=== PATIENT | female | born 1990 | race Caucasian/White ===

== ENCOUNTER 2017-10-28 18:51 | Emergency (ER) | END 2017-10-29 02:22 | disposition home or self-care (01) ==

== ENCOUNTER 2018-06-20 19:54 | Emergency (ER) | END 2018-06-20 21:34 | disposition home or self-care (01) ==

== ENCOUNTER 2019-01-14 22:31 | Emergency (ER) | payer BC, MEDICAID, OTHER ==
[~2019-01-14] VITALS: Ht 157.5 cm; Wt 80.4 kg
[~2019-01-14 22:31] MED LIST: ACET500C5 PO; CEFU500T45 PO; CEPH-443 PO; HYDR-3498 PO; HYDR-4011 PO; IBUP-1542 PO; NITR-58 PO; NORG1TAB59 PO
[2019-01-14 22:41] VITALS: Ht 157.5 cm; Wt 80.4 kg
--- NOTE | 2019-01-15 00:18 | ERD ---
ER Documentation Chief Complaint Chief Complaint Pelvic pain and light bleeding at 2200, pt sts 9 wks preg HPI 28-year-old female, with a EGA 9 weeks by LMP , presents the emergency department, complaining of 1 day with vaginal spotting, associated with cramping pelvic pain, constant, 6/10. The patient denies fevers, no chills, no intra-abdominal pain. The patient has established care in [place]. ROS All systems reviewed and are negative except as per history of present illness. Medications Home Meds Active Scripts Nitrofurantoin Monohyd Macrocr* (Macrobid*) 100 Mg Capsr, 100 MG PO BID for 5 Days, CAP Prov:GUANACO PACHECO PA-C 06/20/18 Cephalexin* (Keflex*) 500 Mg Capsule, 500 MG PO QID for 5 Days, CAP Prov:CONCEPCION SCHUSTER STRONG NITRIC OPERATOR 10/29/17 Hydrocodone/Acetaminophen (Pella 5-325 Tablet) 1 Each Tablet, 1 TAB PO Q6H PRN for SEVERE PAIN LEVEL 7-10, #20 TAB Prov:CONCEPCION SCHUSTER STRONG NITRIC OPERATOR 10/29/17 Ibuprofen* (Motrin*) 600 Mg Tab, 600 MG PO Q6H PRN for PAIN AND OR ELEVATED TEMP, #30 TAB Prov:CONCEPCION SCHUSTER STRONG NITRIC OPERATOR 10/29/17 Acetaminophen* (Tylophen*) 500 Mg Capsule, 1 CAP PO Q6H PRN for PAIN AND OR ELEVATED TEMP, #20 CAP Prov:MADDIE PEREZ PA-C 03/18/16 Cefuroxime Axetil* (Cefuroxime Axetil*) 500 Mg Tablet, 500 MG PO BID for 7 Days, TAB Prov:MADDIE PEREZ PA-C 03/18/16 Reported Medications Hydrocodone Bit-Acetaminophen* (Pella*) Unknown Strength Tab, PO Q4H PRN for PAIN, TAB 09/13/14 Norgestimate-Ethinyl Estradiol (Trinessa) 0.035-0.18MG Tablet, 1 TAB PO DAILY, TAB 09/13/14 Allergies Allergies: Coded Allergies: No Known Drug Allergy (Verified Allergy, Mild, 09/14/14) PMhx/Soc Medical and Surgical Hx: pt denies Surgical Hx History of Surgery: No Anesthesia Reaction: No Hx Neurological Disorder: No Hx Respiratory Disorders: No Hx Cardiac Disorders: No Hx Psychiatric Problems: No Hx Miscellaneous Medical Probl: Yes (hx of uti, gallstones) Hx Alcohol Use: No Hx Substance Use: No Hx Tobacco Use: No Smoking Status: Never smoker FmHx Family History: No diabetes, No coronary disease Physical Exam Vitals Vital Signs Date Temp Pulse Resp B/P (MAP) Pulse Ox O2 O2 Flow FiO2 Time Delivery Rate 01/15/19 98.2 75 18 116/69 98 Room Air 02:44 (85) 01/14/19 98.9 76 16 112/71 100 22:41 (85) Physical Exam Const: No acute distress Head: Atraumatic Eyes: Normal Conjunctiva ENT: Normal External Ears, Nose and Mouth. Neck: Full range of motion. No meningismus. Resp: Clear to auscultation bilaterally Cardio: Regular rate and rhythm, no murmurs Abd: Soft, non tender, non distended. Normal bowel sounds Skin: No petechiae or rashes Back: No midline or flank tenderness Ext: No cyanosis, or edema Neur: Awake and alert Psych: Normal Mood and Affect Result Diagram: 01/15/19 0052 Results 24 hrs Laboratory Tests Test 01/15/19 00:52 White Blood Count 8.2 10^3/ul Red Blood Count 4.49 10^6/ul Hemoglobin 12.2 g/dl Hematocrit 37.3 % Mean Corpuscular Volume 83.1 fl Mean Corpuscular Hemoglobin 27.2 pg Mean Corpuscular Hemoglobin Concent 32.7 g/dl Red Cell Distribution Width 15.1 % Platelet Count 286 10^3/UL Mean Platelet Volume 10.1 fl Immature Granulocytes % 0.400 % Neutrophils % 51.7 % Lymphocytes % 37.0 % Monocytes % 8.3 % Eosinophils % 2.2 % Basophils % 0.4 % Nucleated Red Blood Cells % 0.0 /100WBC Immature Granulocytes # 0.030 10^3/ul Neutrophils # 4.2 10^3/ul Lymphocytes # 3.0 10^3/ul Monocytes # 0.7 10^3/ul Eosinophils # 0.2 10^3/ul Basophils # 0.0 10^3/ul Nucleated Red Blood Cells # 0.0 10^3/ul Urine Color YELLOW Urine Clarity SLIGHTLY CLOUDY Urine pH 6.0 Urine Specific [place] 1.018 Urine Ketones NEGATIVE mg/dL Urine Nitrite NEGATIVE mg/dL Urine Bilirubin NEGATIVE mg/dL Urine Urobilinogen NEGATIVE mg/dL Urine Leukocyte Esterase NEGATIVE Rocio/ul Urine Microscopic RBC 4 /HPF Urine Microscopic WBC 2 /HPF Urine Mucus FEW /HPF Urine Hemoglobin 3+ mg/dL Urine Glucose NEGATIVE mg/dL Urine Total Protein NEGATIVE mg/dl Beta HCG, Quantitative 56504.0 mIU/ml Patient: LAUREL CARTWRIGHT : 1990 Age: 28 Sex: F MR #: [id number] DOS: 01/15/19 0015 Ordering MD: CHAPARRO SOLOMON MD Location: [facility] Room/Bed: PROCEDURE: US OB < 14 weeks. CLINICAL INDICATION: Vaginal bleeding TECHNIQUE: Multiple sonographic images of the pelvis were obtained utilizing transabdominal technique. The images were reviewed on a PACS workstation. COMPARISON: None FINDINGS: There is a live intrauterine with crown-rump length 3.6 cm and heart rate 174 beats per minute. Gestational sac with mean diameter 3.7 cm. A hypoechoic collection adjacent to the gestational sac measures 2.0 x 0.7 cm, consistent with a small subchorionic hemorrhage. The right ovary is not visualized. The left ovary measures 4.3 x 3.3 x 3.9 cm. A 3.2 x 2.7 x 2.8 cm cyst is identified within the left ovary. Normal vascular flow to the ovary is demonstrated. No pelvic free fluid. IMPRESSION: 1. Single live intrauterine gestation of approximately 9 weeks 5 days. Estimated date of delivery 08/15/2019. 2. Small subchorionic hemorrhage. 3. Hypoechoic 3.2 cm cyst within the left ovary, likely corpus luteum. 4. Right ovary not seen. RPTAT: [facility] Procedures/MDM Vital signs stable, Physical exam unremarkable. Differential diagnosis include but not limited to: UTI, threatening , incomplete versus complete abor tion, ectopic , physiologic implantation bleeding, molar . Physical examination and clinical presentation most likely consistent with threatening . During the ED course the patient remained hemodynamically stable and asymptomatic. Results and clinical impression discussed with patient who agrees with management. The patient is stable to be treated outpatient and will be discharged home with close monitoring and follow-up in 2 days with her primary physician. Bed rest and pelvic rest recommended until further medical evaluation. The patient was instructed regarding the outcomes and the potential complications like severe bleeding and . If the patient presents severe bleeding or pain, she was instructed to return to the hospital immediately. Disclaimer: Inadvertent spelling and grammatical errors are likely due to EHR/dictation software use and do not reflect on the overall quality of patient care. Also, please note that the electronic time recorded on this note does not necessarily reflect the actual time of the patient encounter. Departure Diagnosis: Primary Impression: Vaginal bleeding Additional Impression: with 9 completed weeks gestation Condition: Stable Additional Instructions: Thank you very much for allowing us to participate in your care. Your health and safety is our top priority at [facility]. Call your primary care doctor TOMORROW for an appointment during the next 2-4 days and bring all the information and medications prescribed. Have prescriptions filled and follow precisely the directions on the label. If the symptoms get worse and your provider is unavailable, return to the Emergency Department immediately. CHAPARRO SOLOMON MD Jan 15, 2019 00:18
[2019-01-15 02:44] VITALS: BP 116/69; PULSE 75; RESP 18
== END 2019-01-15 02:44 | disposition home or self-care (01) ==
LOC: FTE 22:31
DX: O20.9 Hemorrhage in early pregnancy, unspecified (principal); R10.2 Pelvic and perineal pain; Z3A.09 9 weeks gestation of pregnancy
CPT/HCPCS: 36415; 76801; 81001; 84702; 85025; Z7502